=== PATIENT | female | born 1955 | race Caucasian/White ===

== ENCOUNTER 2020-06-11 15:32 | Outpatient (CLI) | payer MEDICARE, SELFPAY ==
[2020-06-13 14:21] LABS: SARS-CoV-2 RNA PCR Positive
== END 2020-06-11 15:33 | disposition home or self-care (01) ==
LOC: CHSLAB 15:36
PROVIDERS: PCP Internal Medicine; Visit Provider Internal Medicine
DX: U07.1 COVID-19 (principal)
CPT/HCPCS: 87635; C9803; U0003

== ENCOUNTER 2021-03-07 18:30 | Emergency (ER) | payer MEDICARE, SELFPAY ==
--- NOTE | ~2021-03-07 | CT_ITS ---
EXAMINATION: CT abdomen pelvis w con EXAM DATE: 03/07/2021 19:55 INDICATION: RLQ abdominal pain. TECHNIQUE: Spiral CT of the abdomen and pelvis was performed following intravenous injection of 100 m L Omnipaque 350. Axial, coronal and sagittal images of the abdomen and pelvis were reviewed. The do se-length product (DLP) for this examination was 290.60 mGy-cm. The exposure was tailored according to patient size (auto mA exposure control), and iterative reconstruction (ASIR) was used as additiona l dose reduction technique. Comparison is made to prior examination from 12/18/2018. FINDINGS: There is a left liver lobe medial segment hemangioma measuring about 2.5 cm, demonstrating peripheral nodular discontinuous enhancement. Liver, spleen, pancreas and adrenal glands are unremark able. Splenule. Gallbladder is unremarkable. No biliary obstruction. Portal and splenic veins are p atent. Kidneys enhance symmetrically. Small left renal cysts. There is no hydronephrosis. The uter us is unremarkable. The bladder is unremarkable. There is no retroperitoneal or pelvic lymphadenop athy. There is moderate sigmoid diverticulosis. There is extensive perisigmoid and perirectal inflammation, most likely acute uncomplicated diverticulitis. There are no findings to suggest appendicitis. The stomach and small bowel are unremarkable. There is expected amount of colonic stool. No free intra peritoneal gas. Small pericardial effusion. The lung bases are unremarkable. There are no osteobl astic or osteolytic lesions identified. IMPRESSION: 1. Moderate sigmoid diverticulitis with extensive perisigmoid and rectal inflammation most likely [place] uncomplicated diverticulitis. 2. Small pericardial effusion. 3. Liver hemangioma. Reviewed, dictated and finalized at location [facility]. IMPRESSION: 1. Moderate sigmoid diverticulitis with extensive perisigmoid and rectal infla mmation most likely acute uncomplicated diverticulitis. 2. Small pericardial effusion. 3. Liver hemangioma.
[2021-03-07 18:35] VITALS: BP 173/71; PULSE 90; RESP 19; TEMP 37.7; O2SAT 100
--- NOTE | 2021-03-07 18:54 | ED.ABDPAIN ---
HPI - Abdominal Pain General Chief Complaint: Abdominal Pain Stated Complaint: stomach pains Time Seen by Provider: 03/07/21 18:36 Source: patient, family and RN notes reviewed Mode of arrival: ambulatory Limitations: no limitations History of Present Illness HPI narrative: RLQ abdominal pain x 3 hrs. MD elicited complaint: abdominal pain Pertinent past history: none Onset (ago): hour(s) (3 hrs) Pain Consistency: constant Location: RLQ Severity: moderate Pain scale (0-10): 7 Quality: aching and dull Radiation: RLQ Migration to: no migration Exacerbating factors: nothing Relieving factors: nothing Associated symptoms: nausea Related Data Patient : No Home Medications Medication Instructions Recorded Confirmed lorazepam 0.5 mg PO PRN PRN 03/07/21 03/07/21 multivitamin [Daily Multivitamin] 1 tablet PO DAILY 03/07/21 03/07/21 rizatriptan 10 mg PO PRN PRN 03/07/21 03/07/21 venlafaxine 75 mg PO DAILY 03/07/21 03/07/21 Allergies Allergy/AdvReac Type Severity Reaction Status Date / Time Sulfa (Sulfonamide Allergy Hives Verified 03/07/21 18:43 Antibiotics) Review of Systems Review of Systems: All systems reviewed & are unremarkable except as noted in HPI and below Constitutional: Constitutional: Reports as per HPI and Reports no additional constitutional complaints Eyes: Eyes: Reports as per HPI and Reports no additional eye complaints ENT: Reports system reviewed and no additional complaints, except as documented and Reports as per HPI Cardiovascular: Cardiovascular: Reports as per HPI and Reports no additional cardiovascular complaints Respiratory: Respiratory: Reports as per HPI and Reports no additional respiratory complaints Gastrointestinal: Gastrointestinal: Reports as per HPI, Reports no additional gastrointestinal complaints, Reports abdominal pain and Reports nausea Genitourinary: Genitourinary: Reports no additional female genitourinary complaints and Reports as per HPI Musculoskeletal: Musculoskeletal: Reports no additional musculoskeletal complaints and Reports as per HPI Integumentary/Breasts: Skin/Breast: Reports system reviewed and no additional complaints, except as docu and Reports as per HPI Neurologic: Reports system reviewed and no additional complaints, except as documented and Reports as per HPI Psychiatric: Psychiatric: Reports no additional psychiatric complaints and Reports as per HPI Endocrine: Endocrine: Reports no additional endocrine complaints and Reports as per HPI Hematologic/Lymphatic: Hematologic/Lymphatic: Reports no additional hematologic/lymphatic complaints and Reports as per HPI Allergic/Immunologic: Allergic/Immunologic: Reports no additional allergic/immunologic complaints and Reports as per HPI [facility] Past Medical History Medical History (Updated 03/07/21 @ 20:54 by Khanh Reyes MD) Migraine headache Comments See nurses notes re [facility] Exam Const: General: no acute distress, alert and ill appearing Orientation/consciousness: patient oriented x3 Limitations: no limitations HENMT: Head: normal to inspection Ears: TM's normal bilaterally General nose exam: Normal external nose present and Normal nares present Mouth: Yes moist mucous membranes Teeth and gingiva: dentition normal Eyes: Conjunctivae: conjunctivae normal Pupils: Equal, round and reactive pupils present EOM: EOMs intact bilaterally Neck: Neck: normal visual inspection and no lymphadenopathy Chest: Chest palpation & inspection: normal inspection of the chest Resp: Effort & Inspection: normal respiratory effort Auscultation: clear to auscultation bilaterally Cardio: Rate: regular rate Rhythm: regular rhythm GI: GI Palp: Yes Soft to palpation, Yes Tenderness to palpation present (GI) (RLQ) and Yes Rebound tenderness present Percussion: Yes normal to percussion Auscultation: normal bowel sounds : General: Yes no CVA tenderness Back/Spine/Pelvis: Back: no CVA tende
[2021-03-07] MEDS: MORPHINE SULFATE (*CRX) 2 MG/ML INJ IV PUSH (18:59)
[2021-03-07] MEDS: PANTOPRAZOLE SODIUM IV 40 MG VIAL IV PUSH (18:59)
[2021-03-07] MEDS: ONDANSETRON INJ 4 MG/2 ML VIAL IV PUSH (18:59)
[2021-03-07] MEDS: SODIUM CHLORIDE 0.9% IV 500 ML 999 ML IV CONT (19:00)
[2021-03-07 19:19] LABS: Basophils Absolute Auto 0.01 K/mm3 (0.00-0.10); Basophils Percent Auto 0.1 % (0.0-1.0); Hematocrit 33.8 % (35.0-42.0); Hemoglobin 11.6 g/dL (11.7-13.8); Immature Granulocyte Absolute 0.06 K/mm3 (0.00-0.00); Immature Granulocyte Percent A 0.5 % (0.0-0.0); Lymphocytes Absolute Auto 0.55 K/mm3 (1.10-4.50); Mean Corpuscular HGB Conc 34.3 g/dL (32.0-36.0); Mean Corpuscular Hemoglobin 31.4 pg (27.0-31.0); Mean Corpuscular Volume 91.4 fL (78.0-102.0); Mean Platelet Volume 9.5 fl (9.2-11.8); Monocytes Absolute Auto 0.36 K/mm3 (0.10-0.90); Monocytes Percent Auto 3.3 % (2.0-11.0); Neutrophils Absolute Auto 9.9 K/mm3 (1.7-7.2); Neutrophils Percent Auto 91.1 % (50.0-70.0); Platelet Count Result 180 K/mm3 (150-420); Red Cell Distribution Width 13.4 % (11.6-14.4); White Blood Count 10.9 K/mm3 (4.8-10.8)
[2021-03-07 19:20] LABS: Add Urine Microscopic? YES; Bilirubin Urine Negative (Negative); Blood Urine 2+ (Negative); Color Urine Yellow (Yellow); Glucose Urine UA Negative (Negative); Ketones Urine 1+ (Negative); Leukocyte Esterase Ur Negative (Negative); Nitrate Urine Positive (Negative); Protein Urine Trace (Negative); Specific Grav Ur >= 1.030 (1.010-1.020); Urobilinogen Urine 0.2 mg/dL (0.2-1.0)
[2021-03-07 19:29] LABS: Appearance Urine Sl Cloudy (Clear); Squamous Epithelial Cell Urine None seen /hpf (Few); WBC Urine 0-3 /hpf (0-3)
[2021-03-07 19:30] LABS: Bacteria Urine 4+ /hpf; Mucus Urine Heavy /lpf
[2021-03-07 19:33] LABS: Alanine Aminotransferase 28 U/L (14-59); Albumin Level 3.7 g/dL (3.4-5.0); Alkaline Phosphatase 39 U/L (46-116); Anion Gap 11 mmol/L (8-16); Aspartate Amino Transferase 35 U/L (15-37); Bilirubin,Total 0.9 mg/dL (0.00-1.00); Blood Urea Nitrogen 16 mg/dL (7-18); Calcium 9.1 mg/dL (8.5-10.1); Carbon Dioxide 28 mmol/L (21-32); Chloride 103 mmol/L (98-108); Estimated Glomerular Filt Rate > 60; Glucose 117 mg/dL (70-99); Lipase 63 U/L (73-393); Osmolality Calculated 296 mOsm/kg (285-295); Potassium 3.4 mmol/L (3.5-5.1); Sodium 142 mmol/L (136-145); Total Protein 6.7 g/dL (6.4-8.2)
[2021-03-07 20:55] VITALS: BP 155/75; PULSE 97; RESP 20; TEMP 36.6; O2SAT 97
== END 2021-03-07 21:02 | disposition home or self-care (01) ==
PROVIDERS: Emergency Provider Emergency Medicine; PCP Internal Medicine
DX: K57.92 Diverticulitis of intestine, part unspecified, without perforation or abscess without bleeding (principal)
CPT/HCPCS: 36415; 74177; 80053; 81001; 83690; 85025; 96361; 96365; 96375; 99283; 99284; C9113; J0696; J2270; J2405; J7040; Q9967

== ENCOUNTER 2021-03-11 12:40 | Outpatient (CLI) | payer MEDICARE, SELFPAY ==
[2021-03-11 12:55] LABS: Basophils Absolute Auto 0.01 K/mm3 (0.00-0.10); Basophils Percent Auto 0.1 % (0.0-1.0); Hematocrit 35.4 % (35.0-42.0); Hemoglobin 12.3 g/dL (11.7-13.8); Immature Granulocyte Absolute 0.06 K/mm3 (0.00-0.00); Immature Granulocyte Percent A 0.6 % (0.0-0.0); Lymphocytes Absolute Auto 0.54 K/mm3 (1.10-4.50); Lymphocytes Percent Auto 5.7 % (18.0-42.0); Mean Corpuscular HGB Conc 34.7 g/dL (32.0-36.0); Mean Corpuscular Hemoglobin 31.5 pg (27.0-31.0); Mean Corpuscular Volume 90.8 fL (78.0-102.0); Mean Platelet Volume 9.2 fl (9.2-11.8); Monocytes Percent Auto 4.2 % (2.0-11.0); Neutrophils Absolute Auto 8.5 K/mm3 (1.7-7.2); Neutrophils Percent Auto 89.4 % (50.0-70.0); Platelet Count Result 303 K/mm3 (150-420); Red Cell Distribution Width 13.2 % (11.6-14.4); White Blood Count 9.5 K/mm3 (4.8-10.8)
[2021-03-11 13:56] LABS: Alanine Aminotransferase 28 U/L (14-59); Albumin Level 3.6 g/dL (3.4-5.0); Alkaline Phosphatase 47 U/L (46-116); Anion Gap 12 mmol/L (8-16); Aspartate Amino Transferase 17 U/L (15-37); Bilirubin,Total 0.3 mg/dL (0.00-1.00); Blood Urea Nitrogen 13 mg/dL (7-18); Calcium 9.4 mg/dL (8.5-10.1); Carbon Dioxide 29 mmol/L (21-32); Chloride 103 mmol/L (98-108); Estimated Glomerular Filt Rate > 60; Ferritin 397 ng/mL (8-252); Glucose 106 mg/dL (70-99); Iron 28 ug/dL (50-170); Osmolality Calculated 298 mOsm/kg (285-295); Percent Iron Saturation 11 % (12-57); Potassium 3.7 mmol/L (3.5-5.1); Sodium 144 mmol/L (136-145); Total Protein 6.7 g/dL (6.4-8.2)
[2021-03-11 14:01] LABS: CRP 10.9 mg/dL (0.0-0.9)
[2021-03-11 14:40] LABS: Erythrocyte Sedimentation Rate 54 mm/hr (0-20)
[2021-03-14 22:40] LABS: ANCA Screen Negative (Negative); Myeloperoxidase Ab <1.0 AI (<1.0); Proteinase-3 Ab <1.0 AI (<1.0); S cerevisiae Ab (IgA) 4.9 U (<=20.0); S cerevisiae Ab (IgG) 5.6 U (<=20.0)
== END 2021-03-11 12:41 | disposition home or self-care (01) ==
LOC: CHSIMG 12:43
PROVIDERS: PCP Internal Medicine; Visit Provider Internal Medicine
DX: K57.92 Diverticulitis of intestine, part unspecified, without perforation or abscess without bleeding (principal); D64.9 Anemia, unspecified
CPT/HCPCS: 36415; 80053; 82728; 83540; 83550; 85025; 85652; 86021; 86140; 86671

== ENCOUNTER 2022-03-08 08:09 | Outpatient (CLI) | payer MEDICARE, SELFPAY ==
--- NOTE | ~2022-03-08 | MR_ITS ---
EXAMINATION: MR brain IAC wo con DATE: 03/08/2022 09:11 INDICATION: Cognitive impairment. Memory loss. Confusion. TECHNIQUE: Magnetic resonance imaging (MRI) of the brain and brainstem was performed without intraven ous contrast. Sequences included sagittal and axial T1-weighted SE, axial diffusion-weighted FS SE, a xial T2*-weighted GRE, axial 3D SWAN, axial T2-weighted FLAIR, and axial T2-weighted FSE. Apparent di ffusion coefficient (ADC) maps were created. COMPARISON: None. FINDINGS: There are no areas of restricted diffusion to suggest acute infarction. No intracranial hemorrhage or abnormal intracranial mass lesion. There are scattered areas of nonspecific increased T2-weighted si gnal intensity in the left pontine and cerebral white matter, predominantly involving the deep and pe riventricular white matter. There are no intraparenchymal signal abnormalities seen on the other puls e sequences. The ventricles are symmetric and normal in size. There are no abnormal extra-axial fluid collections. No abnormal masses identified at the bilateral cerebellar pontine angles. Flow voids ar e seen in the cerebral arteries on the T2-weighted sequences consistent with their expected patency. Prominent mucosal thickening the left maxillary, ethmoid and sphenoid sinuses with dependently layeri ng fluid/mucus in the left maxillary sinus suggesting acute sinusitis. Visualized orbits and soft tis sues are unremarkable. IMPRESSION: 1. Normal aging brain with few scattered nonspecific foci of white matter T2 hyperintensity likely se quela of chronic small vessel ischemic disease. 2. Mucosal thickening in the left maxillary, sphenoid and ethmoid sinuses, the former with dependentl y layering fluid consistent with acute sinusitis. Reviewed, dictated and finalized at location A. IMPRESSION: 1. Normal aging brain with few scattered nonspecific foci of white matter T2 hy perintensity likely sequela of chronic small vessel ischemic disease. 2. Mucosal thickening in the left maxillary, sphenoid and ethmoid sinuses, the former with dependently layering fluid consistent with acute sinusitis.
== END 2022-03-08 08:10 | disposition home or self-care (01) ==
LOC: CHSIMG 08:12
PROVIDERS: PCP Internal Medicine; Visit Provider Internal Medicine
DX: G31.84 Mild cognitive impairment of uncertain or unknown etiology (principal)
CPT/HCPCS: 70551

== ENCOUNTER 2022-03-15 07:57 | Outpatient (CLI) | payer MEDICARE, SELFPAY ==
--- NOTE | ~2022-03-15 | CT_ITS ---
EXAMINATION: CT chest abdomen pelvis w con DATE: 03/15/2022 08:34 INDICATION: Unexplained weight loss TECHNIQUE: Computed tomography (CT) of the chest, abdomen, and pelvis was performed with 100 CC Omnip aque 350 intravenous contrast. Automated exposure control and iterative reconstruction technique were employed. Exam dose: 420.56 mGy-cm total exam DLP. COMPARISON: 03/2021 CT abdomen pelvis FINDINGS: CHEST CT: Left upper lobe calcified pulmonary granulomas. Small middle lobe calcified pulmonary granuloma. No pulmonary infiltrate or consolidation or pulmonary mass lesion. Approximately 1.5 cm mixed solid and cystic mass of the right lobe of the thyroid gland. Thyroid ultr asound workup is recommended. Heart size is within normal limits. No pericardial or pleural effusion. No thoracic aortic aneurysm or dissection. No hilar or mediastinal mass lesion or lymphadenopathy. ABDOMEN/PELVIS CT: An occasional very small hepatic probable cyst is noted. Approximately 1.6 x 3 cm hemangioma of the medial segment of the left hepatic lobe, with peripheral i nterrupted contrast enhancement. Moderate prominence of the spleen but no splenic mass lesion. No pancreatic mass lesion or calcification or ductal dilatation. Normal morphology of the adrenal glands. Scattered bilateral renal cysts measuring up to approximatel y 5 mm on the right and 1.8 cm on the left. There is some enhancement of the wall of the left renal pelvis which might indicate infection. No uri nary tract calculus or hydroureteronephrosis. The urinary bladder is relatively evacuated and appears unremarkable. The uterus appears to be surgically absent. There are prominent adnexal vessels bilateral, left more prominent than right, suggesting pelvic congestion syndrome. There are relatively prominent gonadal v eins, left greater than right. Normal caliber of the abdominal aorta. No intraperitoneal or retroperitoneal or pelvic mass lesion or adenopathy or ascites. There is a prominent amount of fecal material in the rectum and colon. Diverticulosis of the colon; n o apparent diverticulitis. No bowel obstruction or intraperitoneal free air is detected. Small expansile lytic lesion of the left inferior pubic ramus; consider radiographic bone scan for fu rther evaluation. IMPRESSION: Small expansile lytic lesion of the left inferior pubic ramus seminal consider nuclear b one scan for further evaluation Approximately 1.5 cm complex mass of right lobe of thyroid gland; thyroid ultrasound is recommended Hemangioma of left hepatic lobe Occasional very small probable hepatic cyst Bilateral renal cysts Enhanced the left renal pelvic wall; this may be an indication of left urinary tract infection Prominent adnexal pelvic vessels, left greater than right, suggesting pelvic congestion syndrome Reviewed, dictated and finalized at [facility]. Reviewed, dictated and finalized at location A. IMPRESSION: Small expansile lytic lesion of the left inferior pubic ramus semi nal consider nuclear bone scan for further evaluation Approximately 1.5 cm complex mass of right lobe of thyroid gland; thyroid ultra sound is recommended Hemangioma of left hepatic lobe Occasional very small probable hepatic cyst Bilateral renal cysts Enhanced the left renal pelvic wall; this may be an indication of left urinary tract infection Prominent adnexal pelvic vessels, left greater than right, suggesting pelvic co ngestion syndrome
== END 2022-03-15 07:58 | disposition home or self-care (01) ==
LOC: CHSIMG 07:58
PROVIDERS: PCP Internal Medicine; Visit Provider Internal Medicine
DX: R63.4 Abnormal weight loss (principal); Z85.3 Personal history of malignant neoplasm of breast
CPT/HCPCS: 71260; 74177; Q9967

== ENCOUNTER 2022-03-21 12:52 | Outpatient (CLI) | payer MEDICARE, OTHER, SELFPAY | END 2022-03-21 12:53 | disposition home or self-care (01) | LOC: CHSIMG 12:54 | PROVIDERS: PCP Internal Medicine; Visit Provider Internal Medicine | DX: M89.9 Disorder of bone, unspecified (principal) | CPT/HCPCS: 99199 ==

== ENCOUNTER 2022-03-23 10:18 | Outpatient (CLI) | payer MEDICARE, SELFPAY ==
--- NOTE | ~2022-03-23 | US_ITS ---
EXAMINATION: US thyroid DATE: 03/23/2022 10:51 INDICATION: Thyroid nodule. TECHNIQUE: Multiple ultrasound images of the thyroid were obtained. COMPARISON: None. FINDINGS: The right thyroid lobe measures 4.4 x 2.3 x 1.5 cm. The left thyroid lobe measures 5.2 x 1.6 x 1.3 c m. In the right thyroid lobe, there is a 2.6 cm solid, hypoechoic, wider than tall nodule with tracie h margin without echogenic foci (TI-RADS TR4). In the right thyroid lobe, there is a 7 mm solid, hypo echoic, wider than tall nodule with smooth margin without echogenic foci (TR4). In the left thyroid l obe, there is a 2.2 cm solid, hypoechoic, wider than tall nodule with lobulated margin without echoge chapincito foci (TR4). IMPRESSION: 1. Multinodular goiter. Ultrasound-guided fine-needle aspiration of 2 nodules is recommended. Reviewed, dictated and finalized at location A. IMPRESSION: 1. Multinodular goiter. Ultrasound-guided fine-needle aspiration of 2 nodules i s recommended.
== END 2022-03-23 10:19 | disposition home or self-care (01) ==
LOC: CHSIMG 10:20
PROVIDERS: PCP Internal Medicine; Visit Provider Internal Medicine
DX: E04.1 Nontoxic single thyroid nodule (principal)
CPT/HCPCS: 76536

== ENCOUNTER 2022-03-28 07:54 | Outpatient (CLI) | payer MEDICARE, OTHER, SELFPAY ==
--- NOTE | ~2022-03-28 | NM_ITS ---
EXAMINATION: NM bone scan whole body DATE: 03/28/2022 11:55 INDICATION: Pubic bone lesions suspicious for metastases. TECHNIQUE: 24.2 mCi Tc-99m HDP was administered intravenously. Delayed whole-body scintigrams were o btained. COMPARISON: CT chest, abdomen and pelvis dated 03/15/[address] abdomen and pelvis dated 12/18/2018 FINDINGS: No abnormal uptake associated with a small expansile lytic lesion at the left inferior pubic ramus wh ich measures 9 x 7 mm, unchanged since 03/07/2021 but slightly increased from 12/18/2018 at which time i t measured 7 x 6 mm. Lesion demonstrates well-defined thin sclerotic margins. Mild likely degenerativ e joint centered uptake at the medial compartment of the right knee and at the bilateral hindfeet. Mi ld thoracolumbar dextrocurvature. No other suspicious bone lesions to suggest metastatic disease. IMPRESSION: 1. No abnormal bone uptake associated with a relatively indolent appearing lytic lesion at the left i nferior pubic ramus which demonstrates thin sclerotic margins and only minimal increase in size since 12/18/2018. Both the relative stability over greater than 3 years, indolent appearance and the lack o f uptake favor a benign etiology such as fibrous dysplasia although differential would include treate d metastatic disease. The absence of any additional suspicious bone lesions also argues against metas tatic disease to bone scan can be insensitive for lytic metastases. Reviewed, dictated and finalized at location A. IMPRESSION: 1. No abnormal bone uptake associated with a relatively indolent appearing lyti c lesion at the left inferior pubic ramus which demonstrates thin sclerotic mar gins and only minimal increase in size since 12/18/2018. Both the relative stabi lity over greater than 3 years, indolent appearance and the lack of uptake favo r a benign etiology such as fibrous dysplasia although differential would inclu de treated metastatic disease. The absence of any additional suspicious bone le sions also argues against metastatic disease to bone scan can be insensitive fo r lytic metastases.
== END 2022-03-28 07:55 | disposition home or self-care (01) ==
LOC: CHSIMG 07:58
PROVIDERS: PCP Internal Medicine; Visit Provider Internal Medicine
DX: M89.9 Disorder of bone, unspecified (principal)
CPT/HCPCS: 78306; A9561

== ENCOUNTER 2022-04-27 08:39 | Outpatient (CLI) | payer MEDICARE, OTHER, SELFPAY ==
--- NOTE | ~2022-04-27 | US_ITS ---
EXAMINATION: US FNA w image guidance, US FNA additional DATE: 04/27/2022 10:13 INDICATION: Lateral thyroid nodules TECHNIQUE: A time-out was performed to verify the patient's name, date of , and procedure to be performed . The procedure and its benefits and risks were discussed with the patient. Risks specifically discus sed included bleeding and infection. The patient understood the risks and agreed to proceed. The neck was prepped and draped in the usual sterile manner. Attention was first turned to the left thyroid n odule. 2 mL 1% lidocaine was used for local anesthesia. 6 passes were made with a 25G needle into th e lesion. Appropriate needle location was documented with continuous sonographic guidance. Attention was then turned to the right thyroid nodule. An additional 20 mL 1% lidocaine was used for local ane sthesia. 6 passes were made with a 25G needle into the lesion. Appropriate needle location was docume nted with continuous sonographic guidance. A sterile bandage was applied. There were no immediate co mplications. FINDINGS: Grayscale ultrasound images demonstrate biopsy needles advanced into first into the 2.1 cm TI RADS 4 left thyroid nodule and subsequently into the 2.6 cm TI RADS 4 right thyroid nodule. IMPRESSION: 1. Successful ultrasound-guided fine needle aspiration of a 2.1 cm TI RADS 4 left thyroid nodule. 2. Successful ultrasound-guided fine-needle aspiration of a 2.6 cm TI RADS 4 right thyroid nodule. Reviewed, dictated and finalized at location A. IMPRESSION: 1. Successful ultrasound-guided fine needle aspiration of a 2.1 cm TI RADS 4 l eft thyroid nodule. 2. Successful ultrasound-guided fine-needle aspiration of a 2.6 cm TI RADS 4 ri ght thyroid nodule.
== END 2022-04-27 08:40 | disposition home or self-care (01) ==
PROVIDERS: PCP Internal Medicine; Visit Provider Internal Medicine
DX: E04.1 Nontoxic single thyroid nodule (principal)
CPT/HCPCS: 10005; 10006; 88173; 88305